=== PATIENT | female | born 1930 | race Asian ===

== ENCOUNTER 2017-06-28 10:08 | Emergency (ER) | payer MEDICARE, OTHER ==
[~2017-06-28] VITALS: Wt 68.2 kg
[~2017-06-28 10:08] MED LIST: ACET1TAB40 PO; CALC500T91 PO; DOXA1TAB PO; FURO20TA3 PO; NIFE90TA11 PO; OMEG1CAP2 PO; TRAM-40 PO
[2017-06-28] MEDS ORDERED: ACETAMINOPHEN 500 MG TAB PO STA (10:36)
[2017-06-28] MEDS ORDERED: ACET500C5 PO (11:16)
--- NOTE | 2017-06-28 11:22 | ERD ---
ER Documentation Chief Complaint Chief Complaint l. wrist pain s/p trauma HPI 87-year-old female presents with left wrist pain after falling today outside the hospital as she was here visiting her who is a patient.. She missed a door handle on a vehicle, lost her balance, and fell to the ground. She denies any head injury, loss of consciousness, weakness and there is no bleeding or lacerations. ROS All systems reviewed and are negative except as per history of present illness. Medications Home Meds Active Scripts Acetaminophen* (Tylophen*) 500 Mg Capsule, 1 CAP PO Q6H Y for PAIN AND OR ELEVATED TEMP, #20 CAP Prov:SHAY SCOTT MD 06/28/17 Reported Medications Furosemide* (Furosemide*) 20 Mg Tablet, 20 MG PO DAILY, #60 TAB 04/08/16 Calcium Carbonate ([id number]) 500 Mg Tablet, 500 MG PO BID, TAB 04/08/16 Tramadol Hcl* (Ultram*) 50 Mg Tablet, 50 MG PO DAILY Y for MILD PAIN LEVEL 1-3, TAB 04/08/16 [place]-3 Acid Ethyl Esters (Lovaza) 1 Gm Capsule, 1 GM PO DAILY, CAP 04/08/16 Nifedipine* (Nifedipine ER*) 90 Mg Tablet.er, 90 MG PO DAILY, TAB 04/08/16 Doxazosin Mesylate* (Doxazosin Mesylate*) 1 Mg Tablet, 1 MG PO HS, TAB 04/08/16 Acetaminophen with Codeine (Acetaminophen-Cod #3 Tablet) 1 Each Tablet, 1 EACH PO DAILY Y for SEVERE PAIN LEVEL 7-10, TAB 04/08/16 Allergies Allergies: Coded Allergies: No Known Allergy (Unverified , 01/24/13) PMhx/Soc History of Surgery: Yes (removal of foreign object) Anesthesia Reaction: No Hx Neurological Disorder: No Hx Respiratory Disorders: No Hx Cardiac Disorders: Yes (HTN, atherosclerotic cardiovascular disease, bradycardia) Hx Psychiatric Problems: Yes (dementia) Hx Miscellaneous Medical Probl: Yes (allergic rhinitis; s/p falls in the past as per son) Hx Alcohol Use: No Hx Substance Use: No Hx Tobacco Use: No Smoking Status: Never smoker Physical Exam Vitals Vital Signs Date Time Temp Pulse Resp B/P Pulse Ox O2 Delivery O2 Flow Rate FiO2 06/28/17 10:10 97.0 53 20 118/58 100 Physical Exam Const: [], No apparent distress. Head: Atraumatic Eyes: Normal Conjunctiva ENT: Normal External Ears, Nose and Mouth. Neck: Full range of motion..~ No meningismus. Resp: Clear to auscultation bilaterally Cardio: Regular rate and rhythm, no murmurs Abd: Soft, non tender, non distended. Normal bowel sounds Skin: No petechiae or rashes Back: No midline or flank tenderness Ext: No cyanosis, or edema there is mild deformity of the left distal radius area. There is no appreciable deficits of the radial, median or ulnar nerve. There is no bleeding or erythema or lacerations. No appreciable tenderness other than the left wrist. Neur: Awake and alert Psych: Normal Mood and Affect Results 24 hrs Current Medications Medications (Trade) Dose Ordered Sig/Rina Route PRN Reason Start Time Stop Time Status Last Admin Dose Admin Acetaminophen (Tylenol Tab) 500 mg ONCE STAT PO 06/28/17 10:36 06/28/17 10:38 DC 06/28/17 10:51 Procedures/MDM X-ray left wrist 3V Interpreted by me: Scaphoid: [Normal] Bones: Impacted left distal radius fracture with ulnar styloid fracture. Joints: [No dislocation] Foreign body: [None] impression-impacted, comminuted distal radius fracture with ulnar styloid fracture. Is placed in a left arm splint and was neurovascular intact after splint. Patient also given sling and Tylenol for pain. Patient presents with a closed distal radius and ulnar styloid fracture without evidence of ischemia, signs of deficits or infection. She will be discharged home with orthopedic follow-up this week and return precautions and primary care follow-up. No other signs to suggest head injury, neck injury, additional complications due to her fall today. The patient was stable with no new complaints during the ER course. Clinically, there is no current evidence to suggest meningitis, sepsis, acute abdomen, pneumonia, acute coronary syndrome, pulmonary embolism, or any other emergent condition appearing to require further evaluation or hospitalization. The patient should certainly return for any new or worsening symptoms per the aftercare instructions. They should otherwise follow-up with her primary care doctor for reevaluation this week. Departure Diagnosis: Primary Impression: Wrist fracture, left Encounter type: initial encounter Fracture type: closed Qualified Code: S62.102A - Closed fracture of left wrist, initial encounter Condition: Stable Patient Instructions: Fracture, Wrist [General] Referrals: MICHAEL FELIPE MD,IN BILLIE HERNANDEZ [facility] Hours: Sun-Sun 9:00 AM - 5:00 PM Additional Instructions: See orthopedist for further evaluation within the next week. Recheck otherwise for new or worsening symptoms. May need authorization from primary care doctor. SHAY SCOTT MD Jun 28, 2017 11:22
--- NOTE | 2017-06-28 11:28 | RADRPT ---
PROCEDURE: XR Wrist. CLINICAL INDICATION: Left wrist pain TECHNIQUE: AP, lateral and oblique views of the left wrist were performed. COMPARISON: No prior studies are available for comparison. FINDINGS: There is a comminuted slightly impacted distal radial metaphysis fracture with dorsal angulation and approximately 6 mm of dorsal cortical offset. There is an acute mildly displaced ulnar styloid fracture. 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 There is some offset at the distal radioulnar joint suggesting instability. There is diffuse soft ti ssue swelling. IMPRESSION: 1. Acute comminuted slightly impacted distal radial metaphysis fracture with dorsal angulation and o ffset. 2. Acute mildly displaced ulnar styloid fracture. RPTAT: UU .Silas Guo MD, Date Time Electronically viewed and signed by .Silas Guo MD, on 06/28/2017 11:28 .K/
== END 2017-06-28 12:11 | disposition home or self-care (01) ==
LOC: FTE 10:08
DX: S62.102A Fracture of unspecified carpal bone, left wrist, initial encounter for closed fracture (principal); I10 Essential (primary) hypertension; W18.39XA Other fall on same level, initial encounter; Y92.9 Unspecified place or not applicable